=== PATIENT | female | born 1990 | race Caucasian/White ===

== ENCOUNTER 2017-09-18 21:43 | Emergency (ER) | payer BC ==
[2017-09-19] MEDS ORDERED: KETOROLAC TROMETHAMINE 60 MG/2 ML SDV IM ONE
--- NOTE | 2017-09-19 00:03 | ER Document Report ---
HPI - HPI Patient complains to provider of: Lower back pain Onset: Other Onset/Duration: Gradual Quality of pain: Sharp Severity: Moderate Pain Level: 4 Context: Patient states she has intermittent low back pain due to having a vertebra fused to the sacrum. She saw a chiropractor who adjusted her back on Thursday and the pain has been getting worse since then. [place] like her legs will can give out on her tonight. Denies loss of control of bowels or bladder. Has not seen a primary care physician or orthopedic for this condition. Associated Symptoms: None Exacerbated by: Movement, Walking Relieved by: Denies Similar symptoms previously: Yes Recently seen / treated by doctor: Yes - Chiropractor - ROS ROS below otherwise negative: Yes Systems Reviewed and Negative: Yes All other systems reviewed and negative - CONSTITUTIONAL Constitutional: DENIES: Fever - CARDIOVASCULAR Cardiovascular: DENIES: Chest pain - RESPIRATORY Respiratory: DENIES: Trouble Breathing - GASTROINTESTINAL Gastrointestinal: DENIES: Abdominal Pain - URINARY Urinary: DENIES: Dysuria - REPRODUCTIVE Reproductive: DENIES: : - MUSCULOSKELETAL Musculoskeletal: REPORTS: Back Pain Past Medical History - General Information source: Patient - Social History Smoking Status: Never Smoker Cigarette use (# per day): No Frequency of alcohol use: Occasional Drug Abuse: None Lives with: Spouse/Significant other Family History: Reviewed & Not Pertinent Musculoskeltal Medical History: Reports Other - back problems Other: Bertolottis Syndrome Past Surgical History: Reports: Hx Oral Surgery Vertical Provider Document - CONSTITUTIONAL Agree With Documented VS: Yes Exam Limitations: No Limitations General Appearance: WD/WN, No Apparent Distress - HEENT HEENT: Normocephalic - RESPIRATORY Respiratory: Breath Sounds Normal, No Respiratory Distress - CARDIOVASCULAR Cardiovascular: Regular Rate, Regular Rhythm - GI/ABDOMEN Gastrointestinal: Abdomen Soft, Abdomen Non-Tender - BACK Notes: Patient has tender lumbar spine and left paraspinal lumbar muscles. Left hip slightly raised above right hip on exam. - NEURO Level of Consciousness: Awake, Alert, Appropriate - DERM Integumentary: Warm, Dry Course - Re-evaluation Re-evalutation: 09/19/17 01:26 X-ray showed no acute dislocation or fracture. Transitional L5 vertebrae noted. Patient was already aware of this condition, and is trying to establish with a primary care doctor for possible Ortho referral. Patient states pain is better after Toradol injection - Vital Signs Vital signs: Temp Pulse Resp BP Pulse Ox 97.7 F 57 L 14 119/64 100 09/18/17 21:58 09/18/17 21:58 09/18/17 21:58 09/18/17 21:58 09/18/17 21:58 Discharge - Discharge Clinical Impression: Transitional vertebra, Low back pain Condition: Good Disposition: HOME, SELF-CARE Instructions: Warm Packs ([facility]), Ice Packs ([facility]), Low Back Pain ([facility]), Pain Medication Injection ([facility]), Oral Narcotic Medication ([facility]) Additional Instructions: Ibuprofen every 8 hours as needed for pain, take with food Ice packs or heat packs to area [place] as needed for pain Take muscle relaxers as prescribed Establish with primary care for further evaluation and referral Return as needed
--- NOTE | 2017-09-19 00:54 | RADIOLOGY REPORT (SQ) ---
EXAM DESCRIPTION: HIP BILATERAL CLINICAL HISTORY: pain COMPARISON: None. FINDINGS: Single view of the pelvis and bilateral lateral views of the hips. No acute fracture or dislocation. Normal osseous mineralization. Joint spaces preserved. No abnormalities of visualized sacrum or lumbar spine. IUD identified in the pelvic soft tissues. IMPRESSION: No acute fracture or dislocation.
--- NOTE | 2017-09-19 00:57 | RADIOLOGY REPORT (SQ) ---
EXAM DESCRIPTION: L SPINE WHOLE CLINICAL HISTORY: pain COMPARISON: None. FINDINGS: Frontal, lateral, coned-down lateral view, and bilateral oblique views of the lumbar spine. 5 nonrib-bearing lumbar vertebrae. Lumbar vertebral body height preserved. No subluxation or cortical step-off identified. No evidence of spondylolysis or spondylolisthesis. Transitional L5 vertebral body. Partial visualization of a IUD in the pelvis. Pelvic soft tissues otherwise unremarkable. IMPRESSION: 1. No acute abnormality of the lumbar spine by plain film criteria.
[2017-09-19] MEDS ORDERED: HYDROCODONE/ACETAMINOPHEN 5-325 MG (6 TAB/ER DISP) PO PRN (01:18)
[2017-09-19 02:06] VITALS: BP 117/62
== END 2017-09-19 02:06 | disposition home or self-care (01) ==
LOC: ER 21:43
DX: M54.5 Low back pain (principal); Q76.49 Other congenital malformations of spine, not associated with scoliosis
CPT/HCPCS: 99283; 96372; 72110; 73522; J1885

== ENCOUNTER 2018-10-30 14:15 | Emergency (ER) | payer BC, OTHER ==
[2018-10-30] MEDS ORDERED: NORMAL SALINE 1000 ML 1,000 ML IV ONE (14:27)
--- NOTE | 2018-10-30 14:28 | ER Document Report ---
ED Medical Screen (RME) - General Chief Complaint: Diarrhea Stated Complaint: DIARRHEA Time Seen by Provider: 10/30/18 14:23 Mode of Arrival: Ambulatory Information source: Patient Notes: Patient states she ate letter with 6 days ago and about 4 hours after eating letter that she started to have diarrhea. Patient states that she did have vomiting 5 days ago but none since then. Patient states that the diarrhea was present resolved 4 days ago and then restarted again yesterday. Patient states she had 3 diarrhea bowel movements today. No blood in the stool. Patient reports fever of 105 days ago. Patient is concerned that she has E. coli. I have greeted and performed a rapid initial assessment of this patient. A comprehensive ED assessment and evaluation of the patient, analysis of test results and completion of the medical decision making process will be conducted by additional ED providers. - Related Data Allergies/Adverse Reactions: cefaclor [From Ceclor] Allergy (Verified 10/30/18 14:16) Past Medical History Renal/ Medical History: Denies: Hx Peritoneal Dialysis Past Surgical History: Reports: Hx Oral Surgery Physical Exam - Vital signs Vitals: Temp Pulse Resp BP Pulse Ox 98.1 F 67 12 125/69 97 10/30/18 14:21 10/30/18 14:21 10/30/18 14:21 10/30/18 14:21 10/30/18 14:21 - Abdominal Tenderness: Tender - Left upper abdominal tenderness Course - Vital Signs Vital signs: Temp Pulse Resp BP Pulse Ox 98.1 F 67 12 125/69 97 10/30/18 14:21 10/30/18 14:21 10/30/18 14:21 10/30/18 14:21 10/30/18 14:21
[2018-10-30 15:34] LABS: ABSOLUTE EOSINOPHILS # (AUTO) 0.1 10^3/uL (0.0-0.6); ABSOLUTE LYMPHOCYTES (AUTO) 1.2 10^3/uL (0.5-4.7); ABSOLUTE MONOCYTES (AUTO) 0.4 10^3/uL (0.1-1.4); ABSOLUTE NEUT (AUTO) 4.4 10^3/uL (1.7-8.2); BASOPHILS % (AUTO) 0.6 % (0-2); EOSINOPHILS % (AUTO) 1.4 % (0-6); HEMATOCRIT 41.7 % (36.0-47.0); HEMOGLOBIN 14.2 g/dL (12.0-15.5); LYMPHOCYTES % (AUTO) 19.8 % (13-45); MEAN CORPUSCULAR HEMOGLOBIN 30.7 pg (27.0-33.4); MEAN CORPUSCULAR HGB CONC 34.1 g/dL (32.0-36.0); MEAN CORPUSCULAR VOLUME 90 fl (80-97); RED BLOOD COUNT 4.65 10^6/uL (3.72-5.28); RED CELL DISTRIBUTION WIDTH 12.3 % (11.5-14.0); SEGMENTED NEUTROPHILS % (AUTO) 72.2 % (42-78); TOTAL CELLS COUNTED % (AUTO) 100 %; WHITE BLOOD COUNT 6.1 10^3/uL (4.0-10.5)
[2018-10-30 15:37] LABS: PLATELET COUNT 216 10^3/uL (150-450)
[2018-10-30 15:45] LABS: ALANINE AMINOTRANSFERASE 22 U/L (9-52); ALBUMIN 4.6 g/dL (3.5-5.0); ALKALINE PHOSPHATASE 95 U/L (38-126); ANION GAP 11 (5-19); ASPARTATE AMINO TRANSFERASE 25 U/L (14-36); BILIRUBIN,DIRECT 0.3 mg/dL (0.0-0.4); BILIRUBIN,TOTAL 0.4 mg/dL (0.2-1.3); BLOOD UREA NITROGEN 12 mg/dL (7-20); CALCIUM 9.2 mg/dL (8.4-10.2); CARBON DIOXIDE 24 mmol/L (22-30); CHLORIDE 106 mmol/L (98-107); GLUCOSE 84 mg/dL (75-110); LIPASE 87.5 U/L (23-300); POTASSIUM 4.5 mmol/L (3.6-5.0); SODIUM 141.2 mmol/L (137-145); TOTAL PROTEIN 8.1 g/dL (6.3-8.2)
[2018-10-30 16:24] LABS: APPEARANCE,URINE CLEAR; BILIRUBIN,URINE NEGATIVE (NEGATIVE); COLOR,URINE YELLOW; GLUCOSE, URINE NEGATIVE (NEGATIVE); KETONES,URINE NEGATIVE (NEGATIVE); LEUKOCYTE ESTERASE,URINE NEGATIVE (NEGATIVE); NITRITE,URINE NEGATIVE (NEGATIVE); PROTEIN,URINE NEGATIVE (NEGATIVE); UROBILINOGEN,URINE NEGATIVE mg/dL (<2.0)
--- NOTE | 2018-10-30 16:26 | ER Document Report ---
ED General - General Chief Complaint: Diarrhea Stated Complaint: DIARRHEA Time Seen by Provider: 10/30/18 14:23 Mode of Arrival: Ambulatory Notes: Patient is a 28-year-old female who presents to the emergency department with a chief complaint of diarrhea. She states 5 days ago she had ate some lettuce and within a few hours after eating lettuce she had diarrhea. She had multiple bouts of diarrhea. She continued to have it and then completes the stopped having bowel movements about 3 days later. Then she restarted having she has had about 3 bowel movements. She denies any actual abdominal pain, but does state that she does feel little uncomfortable and having cramping. Her last menstrual cycle ended a week ago. She denies any past medical history. She does not take any medications. - Related Data Allergies/Adverse Reactions: [facility] Allergy (Verified 10/30/18 14:16) Past Medical History - General Information source: Patient - Social History Smoking Status: Never Smoker Frequency of alcohol use: None Drug Abuse: None Family History: Reviewed & Not Pertinent Patient has suicidal ideation: No Patient has homicidal ideation: No Renal/ Medical History: Denies: Hx Peritoneal Dialysis Past Surgical History: Reports: Hx Abdominal Surgery - hernia repair as a child, Hx Oral Surgery Review of Systems - Review of Systems Notes: REVIEW OF SYSTEMS: CONSTITUTIONAL : Denies recent illness. Denies recent unintentional weight loss. Denies fever, chills, or sweats. EENT: Denies eye, ear, throat, or mouth pain, discharge, or symptoms. Denies nasal or sinus congestion. CARDIOVASCULAR: Denies chest pain. RESPIRATORY: Denies shortness of breath, cough, congestion, difficulty breathin g, or wheezing. GASTROINTESTINAL: Denies nausea, vomiting, and diarrhea. Denies abdominal pain. Denies constipation. GENITOURINARY: Denies difficulty urinating, burning, blood in urine, urgency or frequency. MUSCULOSKELETAL: Denies neck and back pain. Denies joint pain or swelling. SKIN: Denies rash, itchiness, or lesions HEMATOLOGIC : Denies easy bruising or bleeding. LYMPHATIC: Denies swollen, painful, enlarged glands. NEUROLOGICAL: Denies no numbness or tingling denies weakness. Denies headache. Denies altered mental status. Denies alteration in speech. PSYCHIATRIC: Denies stress, anxiety, alteration in sleep patterns, or depression. All other systems reviewed and negative. Physical Exam - Vital signs Vitals: Temp Pulse Resp BP Pulse Ox 98.1 F 67 12 125/69 97 10/30/18 14:21 10/30/18 14:21 10/30/18 14:21 10/30/18 14:21 10/30/18 14:21 - Notes Notes: PHYSICAL EXAMINATION: GENERAL: Appears well, healthy, well-nourished, no acute distress. HEAD: Normocephalic, atraumatic. EYES: PERRL, conjunctiva normal, all extraocular movements intact, sclera nonicteric ENT: Dry mucous membranes. NECK: Supple, no noticeable swelling, redness, rash. Normal range of motion. LUNGS: Equal breath sounds bilaterally and clear to auscultation. No wheezes rales or rhonchi. CARDIOVASCULAR: S1-S2, regular rate, regular rhythm. Radial pulses 2+, normal. ABDOMEN: Normoactive bowel sounds. Soft, nontender, no guarding, no rebound tenderness, and no masses palpated. EXTREMITIES: Normal strength and range of motion, no pitting or edema. No cyanosis. NEUROLOGICAL: Moves all extremities upon command. Strength 5/5 in all extremities. PSYCH: Normal mood, normal affect. SKIN: Warm, dry. No rash, lesions, ulcerations noted. Normal skin turgor. Course - Re-evaluation Re-evalutation: 10/30/18 16:27 Patient's hematology and chemistry are both unremarkable. She is currently receiving a liter of IV fluids. She states that she feels better. Awaiting urinalysis and stool culture. 10/30/18 17:37 Patient's urinalysis is unremarkable. Her C. difficile is negative. I suspect she has gastroenteritis. I did have a very low suspicion for a bowel obstruction, mesenteric ischemia, appendicitis, or any life-threatening etiology at this time. She will be sent home with Oleg. I have also educated her on the brat diet and if the brat diet does not work, she can take Imodium. She is in agreement with this plan. Verbal discharge instructions were given to the patient. They verbalized understanding. They are stable for discharge. - Vital Signs Vital signs: Temp Pulse Resp BP Pulse Ox 98.1 F 67 12 125/69 97 10/30/18 14:21 10/30/18 14:21 10/30/18 14:21 10/30/18 14:21 10/30/18 14:21 - Laboratory Result Diagrams: 10/30/18 15:09 10/30/18 15:09 Discharge - Discharge Clinical Impression: Diarrhea Qualifiers: Diarrhea type: unspecified type Qualified Code(s): R19.7 - Diarrhea, unspecified Vomiting Qualifiers: Vomiting type: unspecified Vomiting Intractability: non-intractable Nausea presence: with nausea Qualified Code(s): R11.2 - Nausea with vomiting, unspecified Disposition: HOME, SELF-CARE Instructions: Vomiting ([facility]), Diarrhea, Nonspecific ([facility]) Additional Instructions: You were seen today in the emergency department for diarrhea and vomiting. Your labs are all normal. You are not . Please start the BRAT diet: Bananas, rice, applesauce, and toast. These foods will help with your diarrhea. If you do not get relief of your diarrhea from these foods, you can take [id number] Imodium as directed on the box. Please note that you may not have bowel movements a day or 2 after taking Imodium. You have also been given Zofran, medication for nausea and vomiting. You can take 1 tablet every 4-6 hours as needed for nausea and vomiting. Please follow-up with your primary care provider as needed. If you continue to vomit, have diarrhea, become overly dehydrated, have a fever, or have any symptoms that are worrisome to you, please return to the emergency department. Forms: Return to Work
[2018-10-30] MEDS ORDERED: ONDANSETRON ODT 4 MG TAB (6 TAB/ER DISP) PO PRN (17:29)
[2018-10-30 18:01] VITALS: BP 114/67
== END 2018-10-30 18:02 | disposition home or self-care (01) ==
LOC: ER 14:15
DX: R19.7 Diarrhea, unspecified (principal); R11.2 Nausea with vomiting, unspecified
CPT/HCPCS: 99284; 96360; 96361; 36415; 87045; 87205; 83690; 84703; 85025; 80053; 81001; 87493; J7030